=== PATIENT | male | born 1975 | race Caucasian/White ===

== ENCOUNTER 2023-03-19 04:23 | Inpatient (IN) | payer OTHER, SELFPAY ==
[2023-03-19 05:52] VITALS: BMI 46.0
[2023-03-19] MEDS ORDERED: Ondansetron ODT 4 MG TAB PO PRN (06:07)
[2023-03-19] MEDS ORDERED: Acetaminophen 325 MG TAB PO PRN (06:07)
[2023-03-19] MEDS ORDERED: Lactated Ringer's 1,000 ML IV SCH (06:15)
[2023-03-19] MEDS ORDERED: Morphine 4 MG/ML VIAL SLOW IVP PRN (07:12)
[2023-03-19] MEDS ORDERED: HYDROcodone/Acetaminophen 5/325 mg Tablet PO PRN (07:12)
[2023-03-19] MEDS ORDERED: Piperacillin/Tazobactam 3.375 GM in Sodium Chloride 0.9% 100 ML IVPB SCH ×3 (07:15→10:00)
[2023-03-19 07:52] LABS: #Basophils 0.1 thou/uL (0.0-0.2); #Eosinphils 0.4 thou/uL (0.0-0.7); #Monocytes 0.3 thou/uL (0.11-0.59); #Neutrophils 7.3 thou/uL (1.40-6.50); %Basophils 0.6 % (0.0-1.0); %Lymphocytes 9.6 % (21.0-51.0); %Monocytes 2.9 % (0.0-10.0); %Neutrophils 82.7 % (42.0-75.0); Hematocrit 51.2 % (42.0-52.0); Hemoglobin 16.8 g/dL (14.0-18.0); Mean Corpuscular HGB CONC 32.8 g/dL (32.0-36.0); Mean Corpuscular Hemoglobin 29.6 pg (27.0-31.0); Mean Corpuscular Volume 90.3 fl (78.0-98.0); Mean Platelet Volume 10.6 fL (7.4-10.4); Platelet Count 168 10x3/uL (130-400); RBC Distribution Width 13.6 % (11.5-14.5); Red Blood Cell (RBC) Count 5.67 mill/uL (4.70-6.10); White Blood Cell (WBC) Count 8.9 10x3/uL (4.8-10.8)
[2023-03-19 07:55] LABS: Hemoglobin A1c 6.8 % (4.0-6.0)
[2023-03-19 08:10] LABS: ALT (SGPT) 37 U/L (8-55); AST (SGOT) 16 U/L (5-34); Albumin 4.6 g/dL (3.5-5.0); Alkaline Phosphatase 91 U/L (40-110); Anion Gap 19 mmol/L (10-20); BUN (Urea Nitrogen) 16 mg/dL (8.9-20.6); Bilirubin, Total 1.6 mg/dL (0.2-1.2); Calc. Creatinine Clearance 127 mL/min (70-130); Calcium 9.6 mg/dL (7.8-10.44); Carbon Dioxide 24 mmol/L (22-29); Chloride 99 mmol/L (98-107); Estimated GFR 62; Globulin 3.1 g/dL (2.4-3.5); Glucose 126 mg/dL (70-105); Potassium 4.1 mmol/L (3.5-5.1); Protein, Total 7.7 g/dL (6.0-8.3); Sodium 138 mmol/L (136-145)
[2023-03-19] MEDS ORDERED: Dextrose 5% in Water 1,000 ML IV PRN (08:52)
[2023-03-19] MEDS ORDERED: Dextrose 50% Abboject 50 ML SYRINGE SLOW IVP PRN (08:52)
[2023-03-19] MEDS ORDERED: Glucagon 1 MG/ML KIT IM PRN (08:52)
[2023-03-19] MEDS ORDERED: HumaLOG 300 UNITS/3 ML VIAL SC PRN (08:52)
[2023-03-19] MEDS: Famotidine 20 MG TAB PO SCH ×2 (11:44→20:32)
[2023-03-19] MEDS: Piperacillin/Tazobactam 3.375 GM in Sodium Chloride 0.9% 100 ML IVPB SCH ×2 (12:20→20:32)
[2023-03-19] MEDS ORDERED: Piperacillin/Tazobactam 3.375 GM VIAL ONE (12:41)
[2023-03-19] MEDS ORDERED: Sodium Chloride 0.9% 100 ML ONE (12:41)
[2023-03-19] MEDS ORDERED: fentaNYL PF 100 MCG/2 ML SYRINGE ONE (13:32)
[2023-03-19] MEDS ORDERED: Ondansetron PF 4 MG/2 ML Vial ONE (13:53)
[2023-03-19] MEDS ORDERED: Lidocaine 1% PF 5 ML VIAL ONE (13:53)
[2023-03-19] MEDS ORDERED: PROPOFOL 200 MG/20 ML VIAL ONE (13:53)
[2023-03-19] MEDS ORDERED: Glycopyrrolate 0.2 MG/ML 5 ML SYRINGE ONE (13:53)
[2023-03-19] MEDS ORDERED: Rocuronium Bromide 10 MG/ML (10ML VIAL) ONE (13:53)
[2023-03-19] MEDS ORDERED: NEOSTIGMINE 3 MG/3 ML SYR 3 MG/3 ML SYRINGE ONE (13:53)
[2023-03-19] MEDS ORDERED: Ondansetron HCl/PF 4 MG/2 ML Vial IVP PRN (14:30)
[2023-03-19] MEDS ORDERED: Promethazine HCl 25 MG/ML VIAL IM PRN (14:30)
[2023-03-19] MEDS ORDERED: FLU VACC QS2023-24(6MOS UP)/PF 60 MCG/0.5 ML SYRINGE IM ONE (16:00)
[2023-03-20] MEDS: Piperacillin/Tazobactam 3.375 GM in Sodium Chloride 0.9% 100 ML IVPB SCH ×2 (04:58→11:38)
[2023-03-20 06:12] LABS: #Eosinphils 0.2 thou/uL (0.0-0.7); #Monocytes 0.9 thou/uL (0.11-0.59); #Neutrophils 5.6 thou/uL (1.40-6.50); %Basophils 0.5 % (0.0-1.0); %Eosinophils 2.7 % (0.0-10.0); %Lymphocytes 10.9 % (21.0-51.0); %Neutrophils 73.6 % (42.0-75.0); Hematocrit 42.9 % (42.0-52.0); Hemoglobin 14.4 g/dL (14.0-18.0); Mean Corpuscular HGB CONC 33.6 g/dL (32.0-36.0); Mean Corpuscular Hemoglobin 29.9 pg (27.0-31.0); Mean Platelet Volume 10.3 fL (7.4-10.4); Platelet Count 166 10x3/uL (130-400); RBC Distribution Width 13.8 % (11.5-14.5); Red Blood Cell (RBC) Count 4.82 mill/uL (4.70-6.10); White Blood Cell (WBC) Count 7.5 10x3/uL (4.8-10.8)
[2023-03-20 06:35] LABS: ALT (SGPT) 30 U/L (8-55); AST (SGOT) 24 U/L (5-34); Albumin 3.8 g/dL (3.5-5.0); Alkaline Phosphatase 66 U/L (40-110); Anion Gap 13 mmol/L (10-20); BUN (Urea Nitrogen) 17 mg/dL (8.9-20.6); Bilirubin, Total 1.1 mg/dL (0.2-1.2); Calc. Creatinine Clearance 148 mL/min (70-130); Calcium 8.5 mg/dL (7.8-10.44); Carbon Dioxide 24 mmol/L (22-29); Chloride 103 mmol/L (98-107); Estimated GFR 75; Globulin 2.7 g/dL (2.4-3.5); Glucose 119 mg/dL (70-105); Potassium 3.6 mmol/L (3.5-5.1); Protein, Total 6.5 g/dL (6.0-8.3); Sodium 136 mmol/L (136-145)
[2023-03-20] MEDS: Famotidine 20 MG TAB PO SCH (08:53)
[2023-03-20 16:45] VITALS: BP 118/72; TEMP 97.3
== END 2023-03-20 17:05 | disposition home or self-care (01) | DRG 660 ==
LOC: SURG A 04:23
PROVIDERS: ADMIT Student in an Organized Health Care Education/Training Program; ATTEND Family Medicine
PROC: 0T768DZ Dilation of Right Ureter with Intraluminal Device, Via Natural or Artificial Opening Endoscopic (ICD-10-PCS; principal; 2023-03-19)
DX: N13.6 Pyonephrosis (principal); Z68.42 Body mass index [BMI] 45.0-49.9, adult; E11.9 Type 2 diabetes mellitus without complications; I10 Essential (primary) hypertension; E66.01 Morbid (severe) obesity due to excess calories; Z79.84 Long term (current) use of oral hypoglycemic drugs; Z90.89 Acquired absence of other organs; E03.9 Hypothyroidism, unspecified; N17.9 Acute kidney failure, unspecified
CPT/HCPCS: 36415; 36416; 80053; 83036; 85025; C2617; J2270; J2405; J2543; J2704; J3490; J7120

== ENCOUNTER 2023-03-27 10:49 | Outpatient (CLI) | payer SELFPAY ==
[2023-03-27 12:55] LABS: Bilirubin Neg (Negative); Blood, Urine 150 (Negative); Clarity Slightly Cloudy (Clear); Glucose, Urine (Dipstick) Normal (Negative); Ketone, Urine Negative (Negative); Leukocyte 25 (Negative); Nitrite Negative (Negative); Protein, Urine (Dipstick) 30 mg/dl (Neg-Trace); Specific Gravity, Urine 1.015 (1.005-1.030); Urobilinogen Normal mg/dL (Less than 2)
[2023-03-27 13:10] LABS: INR-International Normal Ratio 1.1; PTT 31.8 sec (22.0-33.0); Prothrombin Time 11.5 sec (9.5-12.1)
[2023-03-27 13:13] LABS: Anion Gap 15 mmol/L (10-20); BUN (Urea Nitrogen) 14 mg/dL (8.9-20.6); Calc. Creatinine Clearance 0 mL/min (70-130); Calcium 9.4 mg/dL (7.8-10.44); Carbon Dioxide 22 mmol/L (22-29); Chloride 105 mmol/L (98-107); Estimated GFR 92; Glucose 85 mg/dL (70-105); Potassium 4.1 mmol/L (3.5-5.1); Sodium 138 mmol/L (136-145)
[2023-03-27 13:15] LABS: Hematocrit 48.7 % (38.8-50.0); Mean Corpuscular HGB CONC 34.9 g/dL (32.0-36.0); Mean Corpuscular Hemoglobin 30.2 pg (27.0-33.0); Mean Corpuscular Volume 86.5 fl (81.2-95.1); Mean Platelet Volume 10.2 fl (7.4-10.4); Platelet Count 251 10x3/uL (150-450); RBC Distribution Width 13.3 % (11.5-14.5); Red Blood Cell (RBC) Count 5.63 10x6/uL (4.32-5.72); White Blood Cell (WBC) Count 7.9 10x3/uL (3.5-10.5)
[2023-03-27 13:43] LABS: RBC/HPF 21-50 HPF (0-3)
[2023-03-27 13:45] LABS: Bacteria/HPF 1+ HPF (None Seen); Mucous/LPF Few LPF (<2+); Squamous Epithelial 0-3 HPF (0-3)
== END 2023-03-27 10:50 | disposition home or self-care (01) ==
LOC: LABBT 10:49
PROVIDERS: ATTEND Urology
DX: Z01.818 Encounter for other preprocedural examination (principal); N20.2 Calculus of kidney with calculus of ureter
CPT/HCPCS: 80048; 81001; 85027; 85610; 85730; 87086; 93005; 93010

== ENCOUNTER 2023-03-29 09:07 | Day surgery (SDC) | payer SELFPAY ==
[2023-03-27 12:33] VITALS: BMI 45.6
[2023-03-29] MEDS ORDERED: fentaNYL PF 100 MCG/2 ML SYRINGE ONE (11:45)
[2023-03-29] MEDS ORDERED: PROPOFOL 20 ML ONE (11:45)
[2023-03-29] MEDS ORDERED: Midazolam HCl 2 mg/2 ml Vial ONE (11:46)
[2023-03-29] MEDS ORDERED: Rocuronium Bromide 10 MG/ML (10ML VIAL) ONE ×2 (12:00→12:02)
[2023-03-29] MEDS ORDERED: Ondansetron PF 4 MG/2 ML Vial ONE ×2 (12:02→12:41)
[2023-03-29] MEDS ORDERED: PROPOFOL 200 MG/20 ML VIAL ONE (12:02)
[2023-03-29] MEDS ORDERED: Lidocaine 1% PF 5 ML VIAL ONE (12:02)
[2023-03-29] MEDS ORDERED: LevoFLOXacin 500 mg/D5W 100 ML BAG ONE (12:03)
[2023-03-29] MEDS ORDERED: SUGAMMADEX SODIUM 200 MG/2 ML VIAL ONE (12:40)
[2023-03-29] MEDS ORDERED: Oxybutynin 5 MG TAB ONE (13:22)
[2023-03-29] MEDS ORDERED: Phenazopyridine HCl 100 MG TAB ONE (13:22)
== END 2023-03-29 15:06 | disposition home or self-care (01) ==
LOC: SDC 09:07
PROVIDERS: ATTEND Urology
PROC: 0T768DZ Dilation of Right Ureter with Intraluminal Device, Via Natural or Artificial Opening Endoscopic (ICD-10-PCS; principal; 2023-03-29)
PROC: 0TC68ZZ Extirpation of Matter from Right Ureter, Via Natural or Artificial Opening Endoscopic (ICD-10-PCS; principal; 2023-03-29)
DX: N20.2 Calculus of kidney with calculus of ureter (principal); N20.1 Calculus of ureter; E11.9 Type 2 diabetes mellitus without complications; E66.01 Morbid (severe) obesity due to excess calories; I10 Essential (primary) hypertension; E03.9 Hypothyroidism, unspecified; Z90.89 Acquired absence of other organs; Z79.84 Long term (current) use of oral hypoglycemic drugs; Z79.899 Other long term (current) drug therapy; Z68.42 Body mass index [BMI] 45.0-49.9, adult
CPT/HCPCS: 82365; 88300; C1747; C1769; C2617; J1956; J2250; J2405; J2704